=== PATIENT | male | born 1960 | race Caucasian/White ===

== ENCOUNTER 2023-07-27 07:42 | Emergency (ER) | payer OTHER, SELFPAY ==
[2023-07-27 07:43] VITALS: BP 130/87; PULSE 80; RESP 18; TEMP 36.7; O2SAT 96; BMI 32.5
--- NOTE | 2023-07-27 07:49 | ED.GENADULT ---
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 He states he had a sudden onset of pain in his left knee that resolved after several days. He states that he was taking ibuprofen frequently and he believes this did help his pain. Patient states that on 07/26/2020 ( 1 day prior to evaluate) he developed pain in his right knee and right ankle. Describes his pain is a constant, sharp, stabbing pain which is 8/10. States he is having difficulty walking secondary to the severity of pain in his ankle. States that his right ankle is more swollen than his right knee. The patient denied fever, chills. He states that he is feeling fatigued. He has not noticed a rash. He states he has had multiple tick bites but cannot recount when he last had a tick bite. He denied nausea, vomiting, diarrhea. Patient is not taking any medications on a regular basis. He drinks 4 beers 3 times a week he smokes 1/2 pack of cigarettes per day for 40 years. Related Data Previous Rx's Medication Instructions Recorded colchicine (gout) 0.6 mg tablet 0.6 mg PO ONCE #6 tabs 07/27/23 (Colcrys) morphine 15 mg immediate release 15 mg PO Q4-6H PRN pain #10 tabs 07/27/23 tablet prednisone 20 mg tablet 60 mg (3 x 20 mg) PO DAILY 5 days 07/27/23 #15 tabs Allergies Allergy/AdvReac Type Severity Reaction Status Date / Time No Known Allergies Allergy Verified 07/27/23 07:45 Review of Systems Review of Systems: Yes all other systems are reviewed and are negative [facility] Past Medical History [facility] Narrative: Past medical history: None social history: Patient smokes 1/2 pack of cigarettes per day times 40 years patient drinks 4 beers 3 times a week he denies drug use Social History Social History Alcohol intake: current Alcohol intake frequency: a few times a week Smoked in Last 30 Days: Yes Use of substances other than those prescribed or required for medical reasons: No Advance Directives: No Advance Directives Information Provided: Yes Physical Exam ED Vital Signs: Vital Signs - 24 hr 07/27/23 07:43 07/27/23 08:10 07/27/23 10:28 Temperature 98.0 F 98.6 F Pulse Rate 80 74 77 Respiratory Rate 18 18 18 Blood Pressure 130/87 164/90 H 166/98 H Pulse Oximetry 96 95 96 Oxygen Delivery Method Room Air Room Air Room Air BMI result Body Mass Index 32.5 Vital signs were normal Exam General: Awake, alert in no distress Head: Normocephalic, atraumatic EENT: PERRL, Lids normal, sclera normal, conjunctiva normal, nose normal , ears normal, throat without erythema or exudates Neck: Supple, no adenopathy, no trachea midline or C-spine tenderness Lung: breath sounds symmetric, no wheezing, rales or rhonchi Chest: symmetric movement, nontender Heart: regular rate and rhythm, normal S1, S2 no murmurs or rubs Abdomen: soft, non-tender, nondistended, normal bowel sounds Back: no vertebral tenderness, no CVAT Extremities: As a small joint effusion to the right knee, patient's right ankle is swollen, with no significant erythema Skin: no rashes, no lesion, normal color and warmth Neuro: Awake, alert, oriented, normal speech, cranial nerves intact, moves all extremities symmetrically Psych: Pleasant, cooperative Medications Administered Discontinued Medications Generic Name Dose Route Start Last Admin Trade Name Freq PRN Reason Stop Dose Admin Ketorolac Tromethamine 15 mg 07/27/23 08:08 07/27/23 08:25 Ketorolac Tromethamine 15 Mg/Ml Vial IVPUSH 07/27/23 08:09 15 mg ONCE STA Administration Lidocaine HCl 5 ml 07/27/23 08:13 07/27/23 08:27 Lidocaine Hcl 1 % Mpf 5 Ml Vial INFILTRATI 07/27/23 08:14 5 ml ONCE STA Administration Procedures Procedure Narrative Procedure Narrative: Right knee joint aspiration I did discuss the procedure with the patient he gave me informed verbal consent to proceed. The medial aspect of the right knee was prepped with Betadine then anesthetized with 1% lidocaine x3 cc. Using an 18 gauge in needle I was able to enter the joint space approximately the 3-4 drops synovial fluid were obtained. The needle was withdrawn and a bandage was applied over the puncture site. 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 This the 1st time the patient has had the symptoms, he has had no concerning systemic symptoms. Exam a right knee joint effusion which was small and a swollen right ankle which is warm to the touch. Exam was otherwise unremarkable . I ordered a CBC, CMP, ESR, CRP, uric acid, crystal analysis. Patient was given Toradol 15 mg IV with some improvement of his pain 10:45 I was only able to get a very small amount of synovial fluid from the patient right knee. This was sent for culture only your Patient's laboratory evaluation did reveal an elevated CRP of 3.94 otherwise unremarkable pain. At this time, I suspect patient has gout Patient will be treated with prednisone 60 mg once a day for 5 days, Colcrys 0.6 mg, 2 pills followed by 1 pill 1 hour later, repeat 3 days and morphine for pain not relieved by these medications. He was given a work note. He was given printed and verbal instructions and discharged home Differential Diagnosis Differential Diagnoses: The differential diagnosis associated with the presentation includes Differential diagnosis includes was not limited to gout, tick-borne illness, rheumatologic disorder, septic during Admission/Observation Consideration of admission/observation: Escalation of care including admission/observation considered Lab Data [facility] Lab Attestation statement: I reviewed the patient's lab results. My interpretation patient's laboratory evaluation as follows: CBC, CMP were normal. ESR was not elevated. CRP was elevated at 3.94 pain. Serum uric acid was negative 07/27/23 08:20 07/27/23 08:54 Labs: Lab Results 07/27/23 07/27/23 Range/Units 08:20 08:54 WBC 9.9 (4.8-10.8) X10*3/uL RBC 5.52 (4.60-5.80) X10*6/uL Hgb 16.3 (14.0-18.0) g/dl Hct 48.2 (42.0-52.0) % MCV 87.3 (80.0-98.0) fL MCH 29.5 (27.0-33.0) pg MCHC 33.8 (31.0-36.0) g/dl RDW 13.3 (11.0-16.0) % Plt Count 267 (160-400) X10*3/uL MPV 9.4 (9.4-12.4) fL Immature Gran % (Auto) 0.3 (0.0-0.4) % Neut % (Auto) 76.2 H (45-73) % Lymph % (Auto) 11.0 L (20-40) % Hubbard % (Auto) 9.1 (2-11) % Eos % (Auto) 3.0 (0-4) % Baso % (Auto) 0.4 (0-2) % Lymph # (Auto) 1.1 L (1.2-4.9) X10*3/uL Hubbard # (Auto) 0.9 (0.1-1.2) X10*3/uL Eos # (Auto) 0.3 (0.0-0.4) X10*3/uL Baso # (Auto) 0.0 (0.0-0.2) X10*3/uL Abs Immat Gran (auto) 0.03 (0.00-0.03) X10*3/uL Absolute Neuts (auto) 7.5 (2.0-8.3) x10*3/uL Absolute Nucleated RBC 0.000 (0.0-0.012) X10*3/uL Nucleated RBC % (auto) 0.0 (0.0-0.2) /100WBC ESR 14 (0-15) MM/HR Sodium 137 (135-145) mmol/L Potassium 4.2 (3.3-5.1) mmol/L Chloride 104 (96-108) mmol/L Carbon Dioxide 25 (22-29) mmol/L Anion Gap 12 (12-20) BUN 10 (9-16) mg/dL Creatinine 0.77 (0.5-1.4) mg/dL Estim Creat Clear Calc 126.7 Estimated GFR > 60 Random Glucose 110 (60-115) mg/dL Uric Acid 4.5 (3.4-7.0) mg/dL Calcium 9.6 (8.4-10.2) mg/dL Total Bilirubin 0.7 (0.0-1.0) mg/dL AST 15 (5-37) U/L ALT 10 (0-40) U/L Alkaline Phosphatase 77 (39-117) U/L C-Reactive Protein 3.94 H (< or = 0.50) mg/dL Total Protein 7.2 (6.5-8.0) g/dL Albumin 3.9 (3.5-5.0) g/dL Discharge Plan Discharge Clinical Impression: Migratory polyarthritis Gout Qualifiers: Gout site: ankle Laterality: right Patient Disposition: Home, Self-Care Instructions: Gout (ED) Additional Instructions: Your inflammatory markers were normal except for an elevated CRP of 3.94. At this time, I suspect that you have gout. Gout is either caused by calcium crystals or uric acid crystal is that precipitate in your joint and then cause inflammation. Your uric acid in your serum was normal, this can be normal in you can still have gout. Take prednisone 20 mg pills, 3 pills once a day for 5 days. While you are taking prednisone, do not take any NSAIDs (Motrin, Advil, ibuprofen, Aleve, naproxen). Take Colcrys 0.6 mg pills, take 2 pills MA 1 hour later take 1 pill, this lasts for 3 days. You can repeat this in 3 days if you are still having pain. Take Tylenol (acetaminophen) 2 pills every 4-6 hours as needed for pain. For pain not relieved by 0 crit or Tylenol take morphine 15 mg pills, 1 pill every 4 hours as needed for pain. This medication will make you sleepy, do not drive or work while taking this medication. Morphine is a narcotic medication and can be addicting. If you are concerned about addiction you can ask the pharmacist for less pills or do not get this prescription filled. You were checked for tick-borne illnesses -these tests will come back in 3-7 days, you should follow-up with her doctor to get these results or you can check the results on the patient portal pain Follow-up with your doctor in 2 days. Please return to the emergency department if your symptoms get worse or if you develop any symptoms that are concerning to you. Please see the work Prescriptions: New colchicine (gout) [Colcrys] 0.6 mg tablet 0.6 mg PO ONCE Qty: 6 0RF Rx Instructions: 1.2 mg orally, then 1 hour later take 0.6 mg orally, may repeat in 3 days prednisone 20 mg tablet 60 mg PO DAILY 5 Days Qty: 15 0RF morphine 15 mg tablet 15 mg PO Q4-6H PRN (Reason: pain) Qty: 10 0RF Rx Instructions: The patient may ask for partial fill; Partial Fill upon patient request. Stand Alone Forms: Work/School Release Interventions: ED Discharge Assessment Last Done: 07/27/23 11:00 Discharge Date/Time: 07/27/23 11:03
[2023-07-27 08:10] VITALS: BP 164/90; PULSE 74; RESP 18; O2SAT 95
--- NOTE | 2023-07-27 08:12 | PC.NURSE ---
Pt alert/oriented. Pt reports 2 weeks ago starting with left ankle pain that has since resolved but now since yesterday reporting right ankle pain and swelling. Denies injury. Reports h/o muliplte tick bites, none in last 2 months. No rashes noted to body. Denies fever/chills. Right ankle appears mildy swollen as well as right knee. +CMS. Skin pwd. VSS
[2023-07-27 08:24] LABS: MANUAL DIFF FLAG NO
[2023-07-27] MEDS: Ketorolac Tromethamine 15 MG/ML VIAL IVPUSH (08:25)
[2023-07-27 08:26] LABS: Basophils Percent Auto 0.4 % (0-2); Eosinophils Absolute Auto 0.3 X10*3/uL (0.0-0.4); Hematocrit 48.2 % (42.0-52.0); Hemoglobin 16.3 g/dl (14.0-18.0); Imm Gran Abs Auto 0.03 X10*3/uL (0.00-0.03); Imm Gran Pct Auto 0.3 % (0.0-0.4); Lymphocytes Absolute Auto 1.1 X10*3/uL (1.2-4.9); Mean Corpuscular HGB Conc 33.8 g/dl (31.0-36.0); Mean Corpuscular Hemoglobin 29.5 pg (27.0-33.0); Mean Corpuscular Volume 87.3 fL (80.0-98.0); Mean Platelet Volume 9.4 fL (9.4-12.4); Monocytes Absolute Auto 0.9 X10*3/uL (0.1-1.2); Monocytes Percent Auto 9.1 % (2-11); Neutrophils Absolute Auto 7.5 x10*3/uL (2.0-8.3); Neutrophils Percent Auto 76.2 % (45-73); Platelet Count 267 X10*3/uL (160-400); Red Blood Count 5.52 X10*6/uL (4.60-5.80); Red Cell Distribution Width 13.3 % (11.0-16.0); White Blood Count 9.9 X10*3/uL (4.8-10.8)
[2023-07-27] MEDS: Lidocaine HCl 1 % MPF 5 ML VIAL INFILTRATI (08:27)
[2023-07-27 09:03] LABS: Erythrocyte Sedimentation Rate 14 MM/HR (0-15)
[2023-07-27 09:27] LABS: Alanine Aminotransferase 10 U/L (0-40); Albumin Level 3.9 g/dL (3.5-5.0); Alkaline Phosphatase 77 U/L (39-117); Anion Gap 12 (12-20); Aspartate Amino Transferase 15 U/L (5-37); Bilirubin Total 0.7 mg/dL (0.0-1.0); Blood Urea Nitrogen 10 mg/dL (9-16); C Reactive Protein 3.94 mg/dL (< or = 0.50); Calcium 9.6 mg/dL (8.4-10.2); Carbon Dioxide 25 mmol/L (22-29); Chloride 104 mmol/L (96-108); Creatinine Clr Calc Pharmacy 126.7; Estimated Glomerular Filt Rate > 60; Glucose Random 110 mg/dL (60-115); Potassium 4.2 mmol/L (3.3-5.1); Sodium 137 mmol/L (135-145); Total Protein 7.2 g/dL (6.5-8.0); Uric Acid 4.5 mg/dL (3.4-7.0)
[2023-07-27 10:28] VITALS: BP 166/98; PULSE 77; RESP 18; TEMP 37; O2SAT 96
[2023-07-30 01:14] LABS: A. Phagocytphilium DNA,RT-PCR NOT DETECTED (NOT DETECTED); Babesia Microti DNA, RT-PCR NOT DETECTED (NOT DETECTED); Borrelia Miyamotoi,DNA RT-PCR NOT DETECTED (NOT DETECTED); E.Chaffeensis DNA RT-PCR NOT DETECTED (NOT DETECTED); Lyme(Borrelia ssp)DNA RT-PCR NOT DETECTED (NOT DETECTED)
== END 2023-07-27 11:03 | disposition home or self-care (01) ==
PROVIDERS: Emergency Provider Emergency Medicine Emergency Medical Services; PCP Internal Medicine
DX: M13.861 Other specified arthritis, right knee (principal); M13.862 Other specified arthritis, left knee; M13.871 Other specified arthritis, right ankle and foot; M10.9 Gout, unspecified; M25.461 Effusion, right knee; F17.210 Nicotine dependence, cigarettes, uncomplicated
CPT/HCPCS: 20610; 36415; 80053; 84550; 85025; 85652; 86140; 87070; 87073; 87468; 87469; 87478; 87484; 87798; 96374; 99284; J1885